=== PATIENT | female | born 1995 | race African-American/Black ===

== ENCOUNTER 2020-06-06 16:53 | Emergency (ER) | payer OTHER ==
[~2020-06-06] VITALS: Ht 165.1 cm; Wt 77.1 kg
[2020-06-06] MEDS ORDERED: FAMOTIDINE (20 MG) 20 MG TABLET ONE (17:23)
[2020-06-06] MEDS ORDERED: LIDOCAINE VISCOUS 2% UD 15 ML UDC ONE (17:23)
[2020-06-06] MEDS ORDERED: MAG HYDROX/AL HYDROX/SIMETH 30 ML UDC ONE (17:23)
--- NOTE | 2020-06-06 17:28 | NUR ---
Patient came in to the er c/o Intermittent nasuea and vomiting x 2 months. On room air, breathing evenly and unlabored. Kept comfortable, will continue to monitor accordingly.
[2020-06-06] MEDS ORDERED: MAG HYDROX/AL HYDROX/SIMETH 30 ML UDC PO ONE (17:30)
[2020-06-06] MEDS ORDERED: LIDOCAINE VISCOUS 2% UD 15 ML UDC MM ONE (17:30)
[2020-06-06] MEDS ORDERED: FAMOTIDINE (20 MG) 20 MG TABLET PO ONE (17:30)
--- NOTE | 2020-06-06 17:31 | NUR ---
urine collected and sent to lab
[2020-06-06 17:36] LABS: BASOPHILS # (AUTO) 0.1 /CMM (0.0-0.2); BASOPHILS % (AUTO) 2.5 % (0.0-2.0); HEMATOCRIT 38 % (33-45); HEMOGLOBIN 12.9 g/dL (11.5-14.8); LYMPHOCYTES # (AUTO) 1.6 /CMM (0.8-4.8); LYMPHOCYTES % (AUTO) 32.3 % (20.0-44.0); MEAN CORPUSCULAR HGB CONC 34 g/dl (31.0-36.0); MEAN CORPUSCULAR VOLUME 95 fL (82-100); MONOCYTES # (AUTO) 0.4 /CMM (0.1-1.30); MONOCYTES % (AUTO) 7.7 % (2.0-12.0); NEUTROPHILS # (AUTO) 2.8 /CMM (1.8-8.9); NEUTROPHILS % (AUTO) 55.5 % (43.0-81.0); PLATELET COUNT (AUTO) 226 /CMM (150-450); RED BLOOD CELL COUNT(AUTO) 3.97 MIL/uL (4.0-5.2)
[2020-06-06 17:37] LABS: BILIRUBIN,URINE Negative (NEGATIVE); COLOR,URINE YELLOW (YELLOW); LEUKOCYTE ESTERASE ,URINE Negative (NEGATIVE); NITRITE, URINE Negative (NEGATIVE); PH,URINE 6.5 (5.0-8.0); PROTEIN,URINE Negative (NEGATIVE); UGLUCOSE Negative (NEGATIVE); UROBILINOGEN,URINE 0.2 EU/dL (0.2)
[2020-06-06 17:53] LABS: CALCIUM, SERUM 8.5 mg/dL (8.5-10.1); CREATININE 0.8 mg/dL (0.6-1.3); POTASSIUM 3.6 mmol/L (3.5-5.1)
[2020-06-06 17:59] LABS: ALBUMIN 3.4 g/dL (3.4-5.0); BILIRUBIN,DIRECT 0.1 mg/dL (0.0-0.2); BILIRUBIN,TOTAL 0.2 mg/dL (0.2-1.0); TOTAL PROTEIN, SERUM 6.9 g/dL (6.4-8.2)
[2020-06-06] MEDS ORDERED: ONDA4TAB11 PO (20:00)
--- NOTE | 2020-06-06 20:10 | NUR ---
Patient discharged to home in stable condition. Written and verbal after care instructions given. Patient verbalizes understanding of instruction and RX. Pt ambulated out of ED. VSS.
[2020-06-06 20:11] VITALS: BP 127/76
== END 2020-06-06 20:11 | disposition home or self-care (01) ==
LOC: ER 16:57
DX: O21.9 Vomiting of pregnancy, unspecified (principal); R10.13 Epigastric pain; Z3A.09 9 weeks gestation of pregnancy
CPT/HCPCS: 36415; 76805-TC; 80048-TC; 80076-TC; 83690-TC; 84702-TC; 84703-TC; 85025-TC

== ENCOUNTER 2020-09-14 21:40 | Emergency (ER) | payer OTHER ==
[~2020-09-14] VITALS: Ht 162.6 cm; Wt 68.0 kg
[~2020-09-14 21:40] MED LIST: ONDA4TAB11 PO
--- NOTE | 2020-09-14 21:50 | NUR ---
PRESENTED TO THE ER FOR C/O R WRIST AND HAND PAIN S/P FALL IN THE BATHROOM. DENIED HITTING HER HEAD, -KO. . DENIED ANY VAG BLEEDING OR CRAMP.PT AMBULATORY TO BED 16, ER, WAS PLACED ON A MONITOR. VSS. WILL CONT TO MONITOR
--- NOTE | 2020-09-14 22:28 | NUR ---
US AT BED SIDE
[2020-09-14] MEDS ORDERED: ACET-868 PO (23:00)
--- NOTE | 2020-09-14 23:36 | NUR ---
PT WAS PROVIDED W/ R THUMB SPICA. PT IS MEDICALLY STABLE FOR D/C. Patient discharged to home in stable condition. rx and Written and verbal after care instructions given. Patient verbalizes understanding of instruction.
[2020-09-14 23:39] VITALS: BP 117/79
== END 2020-09-14 23:39 | disposition home or self-care (01) ==
LOC: ER 21:41
DX: O9A.212 Injury, poisoning and certain other consequences of external causes complicating pregnancy, second trimester (principal); M79.641 Pain in right hand; M25.531 Pain in right wrist; Z3A.20 20 weeks gestation of pregnancy; W01.0XXA Fall on same level from slipping, tripping and stumbling without subsequent striking against object, initial encounter; Y93.89 Activity, other specified; Y92.89 Other specified places as the place of occurrence of the external cause; Y99.8 Other external cause status
CPT/HCPCS: 73130-TC; 76805-TC